=== PATIENT | female | born 1975 | race Caucasian/White ===

== ENCOUNTER 2018-10-07 13:18 | Emergency (ER) | payer MEDICARE, MEDICAID ==
[~2018-10-07] VITALS: Ht 160 cm; Wt 150.0 kg
[2018-10-07 13:22] VITALS: BP 139/86
[2018-10-07] MEDS ORDERED: MONT10TA21 PO (13:51)
[2018-10-07] MEDS ORDERED: ALBU6.7H INH (13:51)
[2018-10-07] MEDS ORDERED: PRED20TA PO (13:51)
[2018-10-07] MEDS ORDERED: benzonatate 100mg capsule PO ONE (13:55)
[2018-10-07] MEDS ORDERED: ipratropium/albuterol 3ml nebule NEB ONE (13:55)
[2018-10-07] MEDS ORDERED: predniSONE 20 mg tablet PO ONE (13:55)
[2018-10-07] MEDS ORDERED: diphenhydrAMINE 25 MG/10 ML UD oral solution PO ONE (14:50)
== END 2018-10-07 15:27 | disposition home or self-care (01) ==
LOC: ER 13:19
DX: J45.909 Unspecified asthma, uncomplicated (principal); J06.9 Acute upper respiratory infection, unspecified; E11.9 Type 2 diabetes mellitus without complications; G89.29 Other chronic pain; Z98.890 Other specified postprocedural states; Z88.0 Allergy status to penicillin; Z88.6 Allergy status to analgesic agent; Z88.8 Allergy status to other drugs, medicaments and biological substances; Z79.2 Long term (current) use of antibiotics; Z79.899 Other long term (current) drug therapy
CPT/HCPCS: 71046; 94640; 94760; 99284; J7512; Q0163